=== PATIENT | female | born 1990 | race African-American/Black ===

== ENCOUNTER 2016-10-07 23:52 | Emergency (ER) | payer BC, MEDICAID ==
[~2016-10-07] VITALS: Ht 157.5 cm; Wt 59.0 kg
[~2016-10-07 23:52] MED LIST: CLIN300C8 PO; HYDR-2758 PO; OXYC-323 PO; SENN1TAB70 PO
[2016-10-07 23:59] VITALS: BP 124/71
[2016-10-08] MEDS ORDERED: AMOX500C PO (00:15)
[2016-10-08] MEDS ORDERED: FLUC150T PO (00:15)
--- NOTE | 2016-10-08 00:15 | PHYS DOC ---
Past Medical History Past Medical History: No Pertinent History Additional Past Medical Histor: Constipation. Past Surgical History: No Surgical History Additional Past Surgical Histo: Mirena placed. Alcohol Use: None Drug Use: None Adult General Chief Complaint Chief Complaint: DENTAL PROBLEM HPI HPI Patient is a 25 year old female presents to the emergency department stating that she's had a 4 day history of dental pain in the left lower mouth area. Patient states that she has also had a headache as well. She states that she has been taken ibuprofen for pain and discomfort last took ibuprofen at 10:00 this morning. Patient states that she has had no fevers no chills or nausea vomiting. She states she has a dental appointment at 7:00 in the morning. Review of Systems Review of Systems Constitutional: Denies fever or chills [] Eyes: Denies change in visual acuity, redness, or eye pain [] HENT: Denies nasal congestion or sore throat. Complained of dental pain Respiratory: Denies cough or shortness of breath [] Cardiovascular: No additional information not addressed in HPI [] GI: Denies abdominal pain, nausea, vomiting, bloody stools or diarrhea [] : Denies dysuria or hematuria [] Musculoskeletal: Denies back pain or joint pain [] Integument: Denies rash or skin lesions [] Neurologic: headache, denies focal weakness or sensory changes [] Endocrine: Denies polyuria or polydipsia [] Allergies Allergies Allergies Coded Allergies Type Severity Reaction Last Updated Verified iodine Allergy Intermediate BROKE OUT WITH HIVES 02/27/16 Yes amoxicillin Adverse Reaction Intermediate YEAST INFECTION 02/27/16 Yes Physical Exam Physical Exam Constitutional: Well developed, well nourished, no acute distress, non-toxic appearance. [] HENT: Normocephalic, atraumatic, bilateral external ears normal, oropharynx moist, no oral exudates, nose normal. Bilateral tympanic membranes appear to be red. Patient appears to have a cavity noted at the #20 tooth. No redness or abscess noted along the gumline. Eyes: PERRLA, EOMI, conjunctiva normal, no discharge. [] Neck: Normal range of motion, no tenderness, supple, no stridor. [] Cardiovascular:Heart rate regular rhythm, no murmur [] Lungs & Thorax: Bilateral breath sounds clear to auscultation [] Skin: Warm, dry, no erythema, no rash. [] Back: No tenderness Extremities: No tenderness, no cyanosis, no clubbing, ROM intact, no edema. [] Neurologic: Alert and oriented X 3, normal motor function, normal sensory function, no focal deficits noted. [] Psychologic: Affect normal, judgement normal, mood normal. [] Current Patient Data Vital Signs Vital Signs Date Time Temp Pulse Resp B/P (MAP) Pulse Ox O2 Delivery O2 Flow Rate FiO2 10/07/16 23:59 98.2 79 18 99 Room Air 98.2 EKG EKG [] Radiology/Procedures Radiology/Procedures [] Course & Med Decision Making Course & Med Decision Making Pertinent Labs and Imaging studies reviewed. (See chart for details) Patient is claiming amoxicillin as been an allergy although she states it causes her to have yeast infections. Patient will be provided with Toradol Benadryl and Reglan here in the emergency department. She'll be discharged home with recommendations to keep her appointment in the morning with the dentist. She'll be provided with amoxicillin and Diflucan for used to infection. Patient will be discharged home in stable condition since symptoms to return back to emergency department as been provided. Recommended ibuprofen 800 mg every 8 hours with food stop taking few develop an upset stomach. [] Dragon Disclaimer Dragon Disclaimer This electronic medical record was generated, in whole or in part, using a voice recognition dictation system. Departure Departure Impression: Primary Impression: Bilateral otitis media Additional Impressions: Dental cavities Headache Disposition: HOME, SELF-CARE Condition: STABLE Referrals: NO PCP (PCP) Patient Instructions: Dental Caries-Brief, General Headache Without Cause, Easy -to-Read, Otitis Media, Adult, [id number] Additional Instructions: You have been provided with medications here in the emergency department will cause drowsiness. Be advisable that you go home and rest. Ibuprofen 800 mg every 8 hours with food stop taking few develop an upset stomach. Antibiotics as prescribed. You've been provided with Diflucan to help with yeast infection. Follow-up with the dentist in which she state you have an appointment tomorrow. Return back to emergency department for signs and symptoms of become worse. Scripts Fluconazole (DIFLUCAN) 150 Mg Tablet 1 TAB PO ONCE, #1 TAB 1 Refill Prov: YONGRIVERA M SHIP PIL[employer] DISPATCHER 10/08/16 Amoxicillin (AMOXICILLIN) 500 Mg Capsule 1 CAP PO QID, #40 CAP Prov: RIVERA BEACH APRN 10/08/16 Problem Qualifiers RIVERA BEACH APRN Oct 08, 2016 00:15
[2016-10-08] MEDS ORDERED: KETOROLAC TROMETHAMINE 10 MG TABLET PO ONE (00:30)
[2016-10-08] MEDS ORDERED: diphenhydrAMINE HCL 25 MG CAPSULE PO ONE (00:30)
[2016-10-08] MEDS ORDERED: METOCLOPRAMIDE 10 MG TABLET. PO ONE (00:30)
== END 2016-10-08 00:19 | disposition home or self-care (01) ==
LOC: ER 23:52
DX: R51 Headache (principal); H66.93 Otitis media, unspecified, bilateral; K02.9 Dental caries, unspecified
CPT/HCPCS: 99284; J8597; Q0163

== ENCOUNTER 2016-11-04 18:03 | Emergency (ER) | payer BC ==
[~2016-11-04] VITALS: Ht 157.5 cm; Wt 59.0 kg
[~2016-11-04 18:03] MED LIST changes: +AMOX500C PO; +FLUC150T PO
[2016-11-04 18:20] VITALS: BP 109/73
[2016-11-04] MEDS ORDERED: TRAM-48 PO (18:32)
[2016-11-04] MEDS ORDERED: SULF1TAB24 PO (18:32)
--- NOTE | 2016-11-04 18:32 | PHYS DOC ---
Past Medical History Past Medical History: No Pertinent History Additional Past Medical Histor: Constipation. Past Surgical History: No Surgical History Additional Past Surgical Histo: Mirena placed. Alcohol Use: None Drug Use: None Adult General Chief Complaint Chief Complaint: ABSCESS HPI HPI Patient is a 25 year old female who presents complaining of left axilla abscesses for 4 years that got worse in the last 2 days. She states she has history of abscesses that have been surgically removed by Dr. Michael from her left breast. Patient denies any fever. Denies any drainage from the area. Review of Systems Review of Systems Constitutional: Denies fever or chills [] Musculoskeletal: Denies back pain or joint pain [] Integument: left axilla abscesses Neurologic: Denies headache, focal weakness or sensory changes [] Allergies Allergies Allergies Coded Allergies Type Severity Reaction Last Updated Verified iodine Allergy Intermediate BROKE OUT WITH HIVES 02/27/16 Yes amoxicillin Adverse Reaction Intermediate YEAST INFECTION 02/27/16 Yes Physical Exam Physical Exam Constitutional: Well developed, well nourished, no acute distress, non-toxic appearance. [] Skin: Left axilla with an indurated area approximately 2 x 0.3 cm. The area is not warm or erythematous, the area is TTP but not fluctuant. Back: No tenderness, no CVA tenderness. [] Extremities: No tenderness, no cyanosis, no clubbing, ROM intact, no edema. [] Neurologic: Alert and oriented X 3, normal motor function, normal sensory function, no focal deficits noted. [] Psychologic: Affect normal, judgement normal, mood normal. [] Current Patient Data Vital Signs Vital Signs Date Time Temp Pulse Resp B/P (MAP) Pulse Ox O2 Delivery O2 Flow Rate FiO2 11/04/16 18:20 98.3 84 20 98 Room Air 98.3 EKG EKG [] Radiology/Procedures Radiology/Procedures [] Course & Med Decision Making Course & Med Decision Making Pertinent Labs and Imaging studies reviewed. (See chart for details) Patient is in the ED with an abscess to the left axilla that she has had for 4 years but got worse in the last couple days. She has history of abscesses that typically have to be drained surgically. The current abscesses not fluctuant or ready to be drained. Tetanus is up to date. Recommended she follows up with her general surgeon by calling the office tomorrow and set up a follow-up appointment. Discharged Bactrim. Warm compresses recommended to the area. Provided return precautions and discharged in stable condition. Dragon Disclaimer Dragon Disclaimer This electronic medical record was generated, in whole or in part, using a voice recognition dictation system. Departure Departure Impression: Primary Impression: Abscess of axilla, left Disposition: 01 HOME, SELF-CARE Condition: STABLE Referrals: NO PCP (PCP) JAYME MICHAEL MD You need to call the office tomorrow and f/u Patient Instructions: Abscess, [id number] Additional Instructions: You were seen for left axilla abscess. We highly recommend you contact Dr. Michael tomorrow morning and get a follow-up appointment. Take the prescribed antibiotics as ordered. Apply warm compresses to the area. Do not shave the area until the infection has cleared out. Come back to the ED if symptoms worsen Scripts Tramadol Hcl (ULTRAM) 50 Mg Tablet 1 TAB PO Q6HRS, #20 TAB Prov: NANCY DEUTSCH APRN 11/04/16 Sulfamethoxazole/Trimethoprim (BACTRIM DS TABLET) 1 Each Tablet 1 TAB PO BID, #20 TAB Prov: NANCY DEUTSCH APRN 11/04/16 NANCY DEUTSCH APRN Nov 04, 2016 18:32
== END 2016-11-04 18:36 | disposition home or self-care (01) ==
LOC: ER 18:03
DX: L02.412 Cutaneous abscess of left axilla (principal)
CPT/HCPCS: 99283

== ENCOUNTER 2016-11-07 15:24 | Day surgery (SDC) | payer BC ==
[~2016-11-07 15:24] MED LIST changes: +SULF1TAB24 PO; +TRAM-48 PO
[2016-11-07 15:52] LABS: NEG OBC UR NEG; POS OBC UR POS
[2016-11-07] MEDS ORDERED: FAMOTIDINE 20 MG/2 ML VIAL ONE (16:19)
[2016-11-07] MEDS ORDERED: MIDAZOLAM HCL/PF 2 MG/2 ML VIAL. ONE (16:19)
[2016-11-07] MEDS ORDERED: ONDANSETRON PF 4 MG/2 ML VIAL. ONE (16:19)
[2016-11-07] MEDS ORDERED: PROPOFOL 20 ML IV ONE ×2 (16:19→16:42)
[2016-11-07] MEDS ORDERED: DEXAMETHASONE SOD PHOS 20 MG/5 ML VIAL. ONE (16:19)
[2016-11-07] MEDS ORDERED: LIDOCAINE 2% PF Vial for OR 5 ML VIAL. ONE (16:19)
[2016-11-07] MEDS ORDERED: fentaNYL PF VIAL 100 MCG/2 ML VIAL ONE ×2 (16:19→17:24)
[2016-11-07] MEDS ORDERED: IV RINGERS,LACTATED 1000ML 1,000 ML IV SCH (16:30)
[2016-11-07] MEDS ORDERED: NEOMY/BACITR/POLYMYXIN OINT PACKET. TP ONE ×2 (16:49→18:23)
[2016-11-07] MEDS ORDERED: SEVOFLURANE 16 TO 30 MINUTES. IH ONE (16:50)
--- NOTE | 2016-11-07 17:04 | PDOC ---
BRIEF OPERATIVE NOTE Date: Nov 07, 2016 Pre-Op Diagnosis left axillary abscess Post-Op Diagnosis same Procedure Performed incision and drainage Surgeon Braulio Anesthesia Type: General Blood Loss minimal IV Fluid 300cc Specimens Obtained cultures Findings sebaceous abscess Complications none OPerative Note Wk # [id number] JAYME MICHAEL MD Nov 07, 2016 17:04
--- NOTE | 2016-11-07 17:05 | DISCH ---
DISCHARGE INSTRUCTIONS Condition on Discharge Condition on Discharge: Stable Activity After Discharge Activity Instructions for Disc: Activity as tolerated, Avoid exertion Lifting Instructions after Dis: No heavy lifting Driving Instructions after Dis: Do not drive today Diet after Discharge Diet after Discharge: Regular Wound Incision Care Wound/Incision Care: Ice to area for comfort Other wound/incision instructi: july shower Friday Follow-Up Follow Up With: Braulio's office, Friday JAYME MICHAEL MD Nov 07, 2016 17:05
[2016-11-07] MEDS ORDERED: PROCHLORPERAZINE 10 MG/2 ML VIAL. ONE (17:24)
[2016-11-07] MEDS: fentaNYL PF VIAL 100 MCG/2 ML VIAL IV PRN ×2 (17:30→17:42)
[2016-11-07] MEDS ORDERED: traMADol 50 MG TABLET PO ONE (17:45)
--- NOTE | 2016-11-07 17:59 | OP ---
DATE OF SURGERY: 11/07/2016 PREOPERATIVE DIAGNOSIS: Left axillary abscess. POSTOPERATIVE DIAGNOSIS: Left axillary abscess. PROCEDURE: Incision and drainage, left axillary abscess. SURGEON: Jayme Michael MD. ANESTHESIA: General LMA. ESTIMATED BLOOD LOSS: Minimal. IV FLUID: 300 mL. INDICATIONS: The patient is a 25-year-old with pain, warmth, redness, and drainage from her left axilla, brought for I and D. DESCRIPTION OF PROCEDURE: The patient brought to the operating suite, given a general LMA and the left axilla was prepped and draped in usual sterile fashion. The process was unroofed, evacuated, cultured and irrigated. Hemostasis with cautery. Wound was dressed with antibiotic ointment, half-inch plain Nu Gauze soaked in saline. Sterile dressing applied. The patient awakened from her anesthetic and taken to the recovery room in satisfactory condition. JAYME MICHAEL MD DR: MELOYD/misael JOB#: [id number] / [id number]
[2016-11-07 18:00] VITALS: BP 132/72
[2016-11-07] MEDS ORDERED: PROCHLORPERAZINE 10 MG/2 ML VIAL. IV PRN (19:00)
[2016-11-07] MEDS ORDERED: fentaNYL PF VIAL 100 MCG/2 ML VIAL IV PRN (19:00)
== END 2016-11-07 19:17 | disposition home or self-care (01) ==
LOC: SURG 15:24
PROVIDERS: ATTEND Surgery
DX: L02.412 Cutaneous abscess of left axilla (principal); Z72.0 Tobacco use; Z88.1 Allergy status to other antibiotic agents; Z91.041 Radiographic dye allergy status
CPT/HCPCS: 10060; 81025; 87205; J0780; J1100; J1956; J2250; J2405; J2704; J3010; S0028; J2001

== ENCOUNTER 2017-05-21 09:56 | Emergency (ER) | payer SELFPAY, BC | END 2017-05-21 10:30 | disposition home or self-care (01) | LOC: ER 09:56 | DX: N61.0 Mastitis without abscess (principal); Z88.1 Allergy status to other antibiotic agents; Z91.041 Radiographic dye allergy status | CPT/HCPCS: 99283 ==

== ENCOUNTER 2017-05-26 15:51 | Day surgery (SDC) | payer SELFPAY ==
[2017-05-26] MEDS ORDERED: IV RINGERS,LACTATED 1000ML 1,000 ML IV (16:42)
[2017-05-26] MEDS ORDERED: PROCHLORPERAZINE 10 MG/2 ML VIAL. (16:42)
[2017-05-26] MEDS ORDERED: HYDROmorphone 2 MG/ML VIAL IV (16:45)
[2017-05-26] MEDS ORDERED: LIDOCAINE 1% PF 2 ML VIAL. ID (16:45)
[2017-05-26] MEDS ORDERED: MORPHINE SULFATE 2 MG/ML DISP.SYRIN. IV (16:45)
[2017-05-26] MEDS ORDERED: PROMETHAZINE 12.5 MG in IV DEXTROSE 5% 50 ML IV (16:45)
[2017-05-26] MEDS ORDERED: PROCHLORPERAZINE 5 MG TABLET. PO (16:45)
[2017-05-26 16:55] LABS: NEG OBC UR NEG; POS OBC UR POS
[2017-05-26 16:57] LABS: U PREG PATIENT NEGATIVE (NEG)
[2017-05-26] MEDS ORDERED: fentaNYL PF VIAL 100 MCG/2 ML VIAL ×3 (16:59→18:35)
[2017-05-26] MEDS: fentaNYL PF VIAL 100 MCG/2 ML VIAL IV ×2 (17:03→18:46)
[2017-05-26] MEDS: PROCHLORPERAZINE 10 MG/2 ML VIAL. IV (17:04)
[2017-05-26] MEDS ORDERED: MIDAZOLAM HCL/PF 2 MG/2 ML VIAL. (17:20)
[2017-05-26] MEDS ORDERED: PROPOFOL 20 ML IV (17:20)
[2017-05-26] MEDS: BUPIVACAINE MPF 0.5% 30 ML VIAL. (17:37)
[2017-05-26] MEDS ORDERED: KETOROLAC 30 MG/ML INJ FOR OR. INJ (17:39)
[2017-05-26] MEDS ORDERED: DEXAMETHASONE SOD PHOS 20 MG/5 ML VIAL. (17:55)
[2017-05-26] MEDS ORDERED: ONDANSETRON PF 4 MG/2 ML VIAL. (17:55)
[2017-05-26] MEDS ORDERED: SEVOFLURANE 16 TO 30 MINUTES. IH (17:55)
[2017-05-26] MEDS: oxyCODONE/APAP 5/325 1 TAB TABLET PO (19:02)
== END 2017-05-26 19:40 | disposition home or self-care (01) ==
LOC: SURG 15:51
DX: N61.1 Abscess of the breast and nipple (principal); Z98.890 Other specified postprocedural states; F17.210 Nicotine dependence, cigarettes, uncomplicated
CPT/HCPCS: 10060; 81025; 87205; J0780; J1100; J1885; J2250; J2405; J2704; J3010; J3490